=== PATIENT | male | born 1960 | race Caucasian/White ===

== ENCOUNTER 2018-03-27 10:25 | Emergency (ER) | payer MEDICAID ==
[~2018-03-27] VITALS: Ht 162.6 cm; Wt 62.6 kg
[2018-03-27 10:55] VITALS: BP 156/104
== END 2018-03-27 16:57 | disposition home or self-care (01) ==
LOC: ER 10:25
DX: S22.42XA Multiple fractures of ribs, left side, initial encounter for closed fracture (principal); Z85.840 Personal history of malignant neoplasm of eye; V89.2XXA Person injured in unspecified motor-vehicle accident, traffic, initial encounter; Y93.55 Activity, bike riding; Y99.8 Other external cause status; Y92.89 Other specified places as the place of occurrence of the external cause
CPT/HCPCS: 71101